=== PATIENT | male | born 1955 | race Caucasian/White ===

== ENCOUNTER 2024-02-01 10:47 | Outpatient (OUT) | payer MEDICARE, SELFPAY ==
--- NOTE | 2024-02-01 10:54 | XR_ITS ---
The [address] [address] Patient Name: RAMIRO OLIVAREZ MRN: [id number] date: 1955 Sex: M Assigned Patient Location: RAD Current Patient Location: [facility] Accession/Order Number: [id number] Exam Date: 02/01/2024 11:05 Report Date: 02/01/2024 11:21 At the request of: [place] CRAIG Procedure: XR foot DOLLY min 3V EXAMINATION: XR foot DOLLY min 3V HISTORY: Bilateral Foot Pain COMPARISON: No relevant comparison available. FINDINGS: RIGHT FINDINGS: BONES: Normal. No significant arthropathy or acute abnormality. SOFT TISSUES: Negative. No visible soft tissue swelling. OTHER: Negative. LEFT FINDINGS: BONES: Normal. No significant arthropathy or acute abnormality. SOFT TISSUES: Negative. No visible soft tissue swelling. OTHER: Negative. XR/XR foot DOLLY min 3V IMPRESSION: RIGHT CONCLUSION: No acute abnormality LEFT CONCLUSION: No acute abnormality Electronically authenticated by: SOPHIE MARVIN Date: 02/01/2024 11:21
== END 2024-02-01 10:48 | disposition home or self-care (01) ==
LOC: RAD 10:49
PROVIDERS: PCP Family Medicine; Visit Provider Podiatrist Foot & Ankle Surgery
DX: M79.672 Pain in left foot (principal); M79.671 Pain in right foot
CPT/HCPCS: 73630